=== PATIENT | female | born 1955 | race Caucasian/White ===

== ENCOUNTER → 2023-07-29 | Outpatient (CLI) | payer MEDICARE, MEDICAID, SELFPAY ==
--- NOTE | 2023-07-29 10:58 | EKG12_ITS ---
Test Reason : PREOP Blood Pressure : / mmHG Vent. Rate : 075 BPM Atrial Rate : 075 BPM P-R Int : 224 ms QRS Dur : 108 ms QT Int : 396 ms P-R-T Axes : 069 063 052 degrees QTc Int : 442 ms Sinus rhythm with 1st degree A-V block Otherwise normal ECG Confirmed by SOUTH CHAPMAN, LUISA ([id number]), associate editor RAMON CALLEJAS ([id number]) on 08/01/2023 11:48:00 AM Referred By: Iker Rizzo Confirmed By:LUISA DIA MD
[2023-07-29 12:09] LABS: Hematocrit 40.2 % (37-47); Mean Corp Hgb Conc 32.3 g/dL (32-36); Mean Corpuscular Hgb 32.1 pg (27.0-32.0); Mean Corpuscular Volume 99.3 fL (81-99); Mean Platelet Vol. 9.4 fl (6.2-12.0); Platelet Count 327 K/mm3 (150-450); RBC Distribution Width CV 13.3 % (11.6-14.6); RBC Distribution Width SD 49.3 fl (35.1-43.9); Red Blood Count 4.05 M/mm3 (4.2-5.4); White Blood Count 9.3 K/mm3 (4.4-11.0)
[2023-07-29 12:53] LABS: Anion Gap 4 (5-15); BUN 14 mg/dL (7-18); BUN/Creat Ratio 19.9 RATIO (10-20); Calcium,Total 9.2 mg/dL (8.5-10.1); Chloride 107 mmol/L (98-107); EST Glomerular Filtration Rate 88 mL/min (>60); Est Glom Filt Rate - Afr Amer 106 mL/min (>60); Glucose 134 mg/dL (74-106); Potassium 4.5 mmol/L (3.5-5.1); Sodium Level 140 mmol/L (136-145)
== END | disposition home or self-care (01) ==
LOC: PSN 10:56
PROVIDERS: PCP Family Medicine; Referring Provider Otolaryngology; Visit Provider Otolaryngology
DX: Z01.810 Encounter for preprocedural cardiovascular examination (principal); Z01.812 Encounter for preprocedural laboratory examination
CPT/HCPCS: 36415; 80048; 85027; 93005

== ENCOUNTER 2024-05-18 08:51 | Emergency (ER) | payer MEDICARE, MEDICAID, SELFPAY ==
[2024-05-18 08:52] VITALS: BP 154/89; PULSE 116; RESP 14; TEMP 36.2; O2SAT 96; BMI 38.4
--- NOTE | 2024-05-18 09:42 | RAD_ITS ---
STUDY: X-RAY CHEST REASON FOR EXAM: Female, 68 years old. Chest pain following lifting injury. TECHNIQUE: Single AP portable view of the chest. COMPARISON: Comparison is made with prior study dated December 17, 2017. FINDINGS: EKG electrodes are seen. Hyperinflation. Stable increased infrahilar markings at the right lung base suggestive of scarring and/or atelectasis. Scattered calcified granulomas. There is no demonstrated pleural abnormality. Normal size heart. Normal mediastinum and nae. Normal visualized pulmonary arteries. Normal visualized aortic arch and descending thoracic aorta. Normal visualized thoracic spine. Normal visualized ribs, clavicles, and shoulders. There is no demonstrated abnormality of the visualized soft tissue structures of the upper abdomen. RAD/Chest 1 View (Portable) IMPRESSION: Hyperinflation. Stable examination with increased markings in the right infrahilar region suggestive of a atelectasis and/or scarring. Electronically Signed: Toby Srinivasan MD at 10:18 EDT ,
--- NOTE | 2024-05-18 09:42 | EKG12_ITS ---
Test Reason : CHEST PAIN Blood Pressure : / mmHG Vent. Rate : 110 BPM Atrial Rate : 110 BPM P-R Int : 194 ms QRS Dur : 104 ms QT Int : 348 ms P-R-T Axes : 077 087 063 degrees QTc Int : 470 ms Sinus tachycardia Incomplete right bundle branch block Borderline ECG Confirmed by Misha Contreras ([id number]), film and video editor RAMON CALLEJAS ([id number]) on 05/19/2024 9:17:50 AM Referred By: Confirmed By:Misha Contreras
--- NOTE | 2024-05-18 09:44 | ED.VIS.CHEST ---
HPI History of Present Illness Chief Complaint: Chest Other Narrative Narrative: 68-year-old female presenting with chest pain. She states its mostly right-sided. 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 States it was 90 degrees outside. She states she tried to drink plenty of water while she was carrying the stones. She states she noticed that she was coughing a lot more this weekend and she is a smoker. She has not had a fever but does state the coughing might be contributing to her chest pain. No history of cardiac disease that she knows of. She has previously had a stress test which she states was normal. She states that some of her pain is reproducible with both movement and touch. Denies any direct trauma. PFSH PFS Home Medications ?Medication ?Instructions ?Recorded ?Last Taken ?Type duloxetine 60 mg capsule,delayed 60 mg PO DAILY 11/20/13 Unknown History release albuterol sulfate 90 mcg/actuation 1 - 2 puff inhalation Q6H PRN PRN 02/28/15 Unknown Rx aerosol inhaler (Ventolin HFA) Wheezing ##1 prednisone 20 mg tablet 60 mg (3 x 20 mg) PO DAILY ##15 02/28/15 Unknown Rx doxycycline monohydrate 100 mg 100 mg PO BID 12/17/17 Unknown History capsule metoprolol succinate 25 mg 25 mg PO DAILY 12/17/17 Unknown History tablet,extended release 24 hr Allergy/AdvReac Type Severity Reaction Status Date / Time Tetanus Vaccines and Toxoid Allergy Anaphylaxis Verified 05/18/24 08:58 (Tetanus Vaccines & Toxoid) Surgical History Total knee replacement status History of appendectomy Social History Smoking Status: Current every day smoker tobacco type: cigarettes ROS ROS ED Constitutional Constitutional ED: Denies chills, fever(s) or sweats Eyes Eyes: Denies blurry vision or change in vision ENT ENT ED: Denies ear pain or sore throat Cardiovascular Cardiovascular: Denies chest pain, palpitations or racing heartbeat Respiratory/Chest Respiratory/Chest: Denies cough, dyspnea or sputum Gastrointestinal Gastrointestinal: Denies abdominal pain, constipation, diarrhea, nausea or vomiting Genitourinary Genitourinary ED: Denies dysuria, hematuria or urinary frequency Musculoskeletal Musculoskeletal: Denies arthralgias, myalgias or neck pain Integumentary Denies abscess, Abrasions or rash Neurologic Neurologic: Denies headache(s), paresthesias or weakness Psychiatric Psychiatric: Denies anxiety, depression, suicidal ideation or suicidal thoughts Endocrine Endocrinology: Denies polydipsia or polyuria EXAM Physical Exam Const Vital Signs: 05/18/24 08:52 05/18/24 09:51 05/18/24 10:51 Temperature 97.2 F L Temperature Source Temporal Pulse Rate 116 H 79 Respiratory Rate 14 19 H Blood Pressure 154/89 H 115/71 Blood Pressure Mean 110 85 Pulse Ox 96 95 Oxygen Delivery Method Room Air Room Air 05/18/24 12:00 05/18/24 12:53 Temperature 95.8 F L Temperature Source Pulse Rate 83 76 Respiratory Rate 21 H 18 Blood Pressure 106/69 116/63 Blood Pressure Mean 81 80 Pulse Ox 95 97 Oxygen Delivery Method Room Air Positive well nourished General Appearance ED: NAD HEENT Reports moist mucous membranes normocephalic and atraumatic Eyes PERRL Chest Wall Chest Narrative: Tenderness to palpation over the chest wall anteriorly. No bruising. Equal symmetric breath sounds and chest wall rise. Resp normal respiratory effort and clear to auscultation bilaterally Auscultation: Negative for rales, rhonchi or wheezes Cardio Rate: tachycardic GI normal to inspection, nondistended, normoactive bowel sounds Neuro oriented x3 and CN's II-XII intact bilaterally Sensorium / Orientation: awake and alert Motor Exam: strength 5/5 throughout Psych mental status grossly normal Skin no rashes or lesions noted MDM MDM MDM Narrative Medical decision making narrative: Patient presenting with chest pain which she believes is partially due to lifting heavy stones Ogen mining and also due to coughing. Differential includes ACS, PE, costochondritis, pneumonia, dehydration, anemia, electrolyte abnormalities, pneumothorax. Patient tachycardic so we will obtain a D-dimer and she recently traveled to [place] which is not a long distance drive. CBC will be obtained to assess white blood cell count, hemoglobin, platelets. BMP to assess renal function, electrolytes, glucose. High-sensitivity troponin and EKG to assess for ischemia/dysrhythmia. Chest x-ray to rule out pneumonia. Patient does not want anything stronger if she wants to try some Toradol. EKG sinus rhythm at 110 bpm without sign ischemic change. Chest x-ray interpreted by myself shows no acute process. Radiology interpretation agrees. CBC shows white blood cell count 11.2. Hemoglobin 12.7. Platelets are normal at 270. D-dimer 154 and age-adjusted is negative. Renal function electrolytes normal. High-sensitivity troponin is 5. Since she has had this pain ongoing and open she is a delta troponin. Patient counseled on all findings. She is comfortable being discharged home. I recommended alternating Tylenol, ibuprofen, icing as needed. Impression: 1. Chest pain 2. Cough Lab Data Attestation: I reviewed the patient's lab results. Labs: Laboratory Results - last 24 hr 05/18/24 09:49 WBC 11.2 H RBC 3.97 L Hgb 12.7 Hct 38.4 MCV 96.7 MCH 32.0 MCHC 33.1 RDW Std Deviation 47.3 H RDW Coeff of Darleen 13.2 Plt Count 270 MPV 9.4 Immature Gran % (Auto) 0.500 Neut % (Auto) 69.9 Lymph % (Auto) 20.3 Harmon % (Auto) 7.7 Eos % (Auto) 1.2 Baso % (Auto) 0.4 Absolute Neuts (auto) 7.8 H Absolute Lymphs (auto) 2.28 Nucleated RBC % 0 D-Dimer Quant (PE/DVT) 0.54 H* Sodium 138 Potassium 3.9 Chloride 108 H Carbon Dioxide 28.0 Anion Gap 2 L BUN 18 Creatinine 0.68 Estim Creat Clear Calc 78.01 Est GFR (MDRD) Af Amer 111 Est GFR (MDRD) Non-Af 91 BUN/Creatinine Ratio 26.5 H Glucose 134 H Calcium 9.2 Troponin I High Sens 5 Radiography Diagnostic Testing: Clinical Impression(s) from Imaging Studies Chest X-Ray 05/18/24 09:42 IMPRESSION: Hyperinflation. Stable examination with increased markings in the right infrahilar region suggestive of a atelectasis and/or scarring. Electronically Signed: Toby Srinivasan MD at 10:18 EDT , Discharge Plan Triage Chief Complaint: Chest Other ED Provider: German Lacey Dx/Rx/DC Orders Instructions: ED Chest Pain, Noncardiac, ED Chest Wall Pain, Costochondritis Prescriptions: No Action duloxetine 60 MG capsule 60 mg PO DAILY albuterol sulfate [Ventolin HFA] 1 INHALER inhaler 1 - 2 puff inhalation Q6H PRN PRN (Reason: Wheezing) Qty: 1 0RF prednisone 20 MG tablet 60 mg PO DAILY Qty: 15 0RF metoprolol succinate 25 MG tablet extended release 24 hr 25 mg PO DAILY doxycycline monohydrate 100 MG capsule 100 mg PO BID Primary Care Provider: Jerome Chatterjee Referrals: Jerome Chatterjee MD [Primary Care Provider] - Print Language: Yemeni Disposition Disposition: Home, Self Care Discharge Date/Time: 05/18/24 12:54
[2024-05-18] MEDS: 0.9% Normal Saline (1000mL) 1,000 ML 999 ML IV (09:52)
[2024-05-18] MEDS: Ketorolac 15 MG/ML Vial IV (09:53)
[2024-05-18 09:54] LABS: Absolute Lymphocyte Count 2.28 X10^3/uL (0.83-4.51); Absolute Neutrophil Count 7.8 X10^3/uL (2.0-7.7); Basophil# 0.04 X10^3/uL; Basophil% 0.4 % (0-1); Eosinophil# 0.14 X10^3/uL; Eosinophils% 1.2 % (0-5); Hematocrit 38.4 % (37-47); Hemoglobin 12.7 g/dL (12.0-15.0); Lymphocyte # 2.28 X10^3/ul (0.83-4.51); Lymphocyte % 20.3 % (19-41); Mean Corp Hgb Conc 33.1 g/dL (32-36); Mean Corpuscular Volume 96.7 fL (81-99); Mean Platelet Vol. 9.4 fl (6.2-12.0); Monocyte# 0.86 X10^3/uL; Monocyte% 7.7 % (0-10); NRBC Flagged by Analyzer 0 % (0-5); Neutrophil # 7.83 X10^3/uL (2.7-7.7); Neutrophil % 69.9 % (47-70); Platelet Count 270 K/mm3 (150-450); RBC Distribution Width CV 13.2 % (11.6-14.6); RBC Distribution Width SD 47.3 fl (35.1-43.9); Red Blood Count 3.97 M/mm3 (4.2-5.4); White Blood Count 11.2 K/mm3 (4.4-11.0)
[2024-05-18 10:14] LABS: Anion Gap 2 (5-15); BUN 18 mg/dL (7-18); BUN/Creat Ratio 26.5 RATIO (10-20); Calcium,Total 9.2 mg/dL (8.5-10.1); Chloride 108 mmol/L (98-107); Creatinine, Serum 0.68 mg/dL (0.55-1.02); D-Dimer Quantitative (DVT/PE) 0.54 FEU/ug/m (0.27-0.49); EST Glomerular Filtration Rate 91 mL/min (>60); Est Glom Filt Rate - Afr Amer 111 mL/min (>60); Estimated Creatinine Clearance 78.01 ml/min; Glucose 134 mg/dL (74-106); Potassium 3.9 mmol/L (3.5-5.1); Sodium Level 138 mmol/L (136-145); Troponin-I HS 5 pg/mL (3.0-54.0)
--- NOTE | 2024-05-18 10:15 | ED.RN ---
Critical lab result d-dimer of 0.54. Dr. Lacey notified
[2024-05-18 10:51] VITALS: BP 115/71; PULSE 79; RESP 19; O2SAT 95
[2024-05-18 12:00] VITALS: BP 106/69; PULSE 83; RESP 21; O2SAT 95
[2024-05-18 12:53] VITALS: BP 116/63; PULSE 76; RESP 18; TEMP 35.4; O2SAT 97
== END 2024-05-18 12:54 | disposition home or self-care (01) ==
PROVIDERS: Emergency Provider Student in an Organized Health Care Education/Training Program; PCP Family Medicine; Visit Provider Student in an Organized Health Care Education/Training Program
DX: R07.89 Other chest pain (principal); F17.210 Nicotine dependence, cigarettes, uncomplicated; R05.9 Cough, unspecified
CPT/HCPCS: 71045; 80048; 84484; 85025; 85379; 93005; 96361; 96374; 99284; J7030; A4216

== ENCOUNTER 2024-06-05 19:56 | Emergency (ER) | payer MEDICARE, MEDICAID, SELFPAY ==
[2024-06-05 19:57] VITALS: BP 143/103; PULSE 99; RESP 16; TEMP 36.5; O2SAT 95; BMI 39.6
[2024-06-05 20:01] VITALS: O2SAT 94
--- NOTE | 2024-06-05 20:10 | EDS_ITS ---
HPI History of Present Illness Chief Complaint: Shortness of Breath Informant: patient Onset/Context/Timing Onset: Today Narrative Narrative: Patient presents secondary shortness of breath with throat tightening. She states she woke from sleep and felt that her throat was very dry and sticking together. She was not able to get a good breath in. She states she feels that there is a lot of thick mucus and drainage that she was not able to bring up. She has not recently been ill. She does not have any neck or chest pain. She states she has had this happen before, but this episode seem to be worse. [facility] Medical History (Updated 06/05/24 @ 21:[address] Karely Mercado MD) Depression Diabetes mellitus Hypertension High cholesterol COPD (chronic obstructive pulmonary disease) Home Medications ?Medication ?Instructions ?Recorded ?Last Taken ?Type duloxetine 60 mg capsule,delayed 60 mg PO DAILY 11/20/13 Unknown History release albuterol sulfate 90 mcg/actuation 1 - 2 puff inhalation Q6H PRN PRN 02/28/15 Unknown Rx aerosol inhaler (Ventolin HFA) Wheezing ##1 metoprolol succinate 25 mg 25 mg PO DAILY 12/17/17 Unknown History tablet,extended release 24 hr atorvastatin 10 mg tablet 10 mg PO DAILY 06/05/24 Unknown History guaifenesin 1,200 mg tablet, 1,200 mg PO BID PRN congestion #20 06/05/24 Unknown Rx extended release 12 hr (Mucinex) tabs metformin 500 mg tablet,extended 1,000 mg PO DAILY 06/05/24 Unknown History release 24 hr Allergy/AdvReac Type Severity Reaction Status Date / Time Tetanus Vaccines and Toxoid Allergy Anaphylaxis Verified 05/18/24 08:58 (Tetanus Vaccines & Toxoid) Surgical History Total knee replacement status History of appendectomy Social History Smoking Status: Current every day smoker tobacco type: cigarettes ROS ROS ED Constitutional Constitutional ED: Denies chills or fever(s) Eyes Eyes: Denies discharge from eye(s) ENT ENT ED: Reports other Details: Throat tightness but denies throat pain. ; Denies discharge from eye(s), rhinorrhea or sore throat Cardiovascular Cardiovascular: Denies chest pain Respiratory/Chest Respiratory/Chest: Reports dyspnea; Denies cough Gastrointestinal Gastrointestinal: Denies abdominal pain, nausea or vomiting Musculoskeletal Musculoskeletal: Denies back pain or extremity pain Integumentary Denies Abrasions or rash Neurologic Neurologic: Denies headache(s) or weakness Psychiatric Psychiatric: Denies anxiety or depression Allergic/Immunologic Allergic/Immunologic ED: Denies lip swelling or urticaria EXAM Physical Exam Const Vital Signs: 06/05/24 19:57 06/05/24 20:01 06/05/24 20:25 Temperature 97.7 F L Temperature Source Temporal Pulse Rate 99 94 Respiratory Rate 16 16 Respiratory Effort Normal Non-Labored Respiratory Depth Normal Respiratory Pattern Normal Normal Blood Pressure 143/103 H Blood Pressure Mean 116 Pulse Ox 95 Oxygen Delivery Method Room Air Room Air Positive well nourished and well developed General Appearance ED: well developed HEENT Reports moist mucous membranes Eyes EOMs intact bilaterally Chest Wall inspection of chest normal and palpation of chest normal Resp normal respiratory effort and clear to auscultation bilaterally Cardio regular rate and regular rhythm GI non-tender Palpation: soft Extremity normal to inspection Neuro oriented x3 and no sensory deficits noted Motor Exam: strength 5/5 throughout Psych mental status grossly normal Skin no rashes or lesions noted MDM MDM MDM Narrative Medical decision making narrative: Patient tolerating secretions well and speaks with a strong voice at this time. I will give her a DuoNeb treatment as well as a dose of Mucinex. X-rays of the soft tissue neck and chest will be obtained to evaluate for any airway narrowing or infiltrate. Radiography Diagnostic Testing: Clinical Impression(s) from Imaging Studies Chest X-Ray 06/05/24 20:15 IMPRESSION: There are no acute findings. Electronically Signed: Andrew Correia MD at 21:22 EDT , Soft Tissue Neck X-Ray 06/05/24 20:15 IMPRESSION: No acute findings in the neck. Electronically Signed: Andrew Correia MD at 21:31 EDT , Treatment and Re-Evaluation :: Soft tissue neck x-ray and chest x-ray per my interpretation: No obvious acute abnormalities. No airway narrowing. Radiology interpretation reviewed and agrees. On repeat evaluation patient does feel improved. Respiratory therapy did report increased air movement after her aerosol treatment. Patient will be on a prescription for Mucinex and she was advised that if her medication card does not cover it she can pick it up [id number]. We discussed increasing p.o. fluids to help thin down the mucus. I do not see any signs of acute infection at this time. Discharge Plan Triage Chief Complaint: Shortness of Breath ED Provider: Karely Mercado Dx/Rx/DC Orders Clinical Impression: Dysphagia Prescriptions: New guaifenesin [Mucinex] 1,200 mg tablet extended release 12hr 1,200 mg PO BID PRN (Reason: congestion) Qty: 20 0RF No Action duloxetine 60 MG capsule 60 mg PO DAILY albuterol sulfate [Ventolin HFA] 1 INHALER inhaler 1 - 2 puff inhalation Q6H PRN PRN (Reason: Wheezing) Qty: 1 0RF metoprolol succinate 25 MG tablet extended release 24 hr 25 mg PO DAILY metformin 500 mg tablet extended release 24 hr 1,000 mg PO DAILY atorvastatin 10 mg tablet 10 mg PO DAILY Primary Care Provider: Jerome Chatterjee Referrals: Jerome Chatterjee MD [Primary Care Provider] - 3-5 Days if not improving Activity Restrictions/Additional Instructions: You have been given prescription for Mucinex which will help thin the mucus and sputum so you can get it out. If this is not covered by your prescription card, it is available [id number]. Please increase your p.o. fluids as well. Print Language: Ug[place]an Disposition Disposition: Home, Self Care
--- NOTE | 2024-06-05 20:15 | RAD_ITS ---
EXAM: XR SOFT TISSUE NECK CLINICAL INDICATION: choking TECHNIQUE: Frontal and lateral views of the soft tissues of the neck. COMPARISON: No relevant prior studies available. FINDINGS: AIRWAY: Unremarkable. Grossly patent. BONES/JOINTS: Degenerative findings in the cervical spine. SOFT TISSUES: Unremarkable. No radiopaque foreign body. No pathologic thickening or enlargement of the epiglottis. VASCULATURE: Left carotid artery calcification. RAD/Neck for Soft Tissue IMPRESSION: No acute findings in the neck. Electronically Signed: Andrew Correia MD at 21:31 EDT ,
--- NOTE | 2024-06-05 20:15 | RAD_ITS ---
STUDY: XR Chest 2 Views 06/05/2024 8:15 PM REASON FOR EXAM: Female, 68 years old. sob COMPARISON: 05/18/2024 TECHNIQUE: XR Chest 2 Views FINDINGS: There is no demonstrated pleural abnormality. Normal heart size. Normal mediastinum. Normal nae. Prominent appearing increased interstitial lung markings. Normal visualized pulmonary arteries. There is atherosclerotic calcification of the aortic arch with tortuosity. There are diffuse degenerative changes of the visualized thoracic spine. There is degenerative osteoarthritis of the bilateral shoulders. There are no acute findings of the upper abdomen. RAD/Chest PA and Lateral IMPRESSION: There are no acute findings. Electronically Signed: Andrew Correia MD at 21:22 EDT ,
[2024-06-05 20:25] VITALS: PULSE 94; RESP 16
[2024-06-05] MEDS: Ipratropium/Albuterol Sulfate 3 ML AMPUL.NEB INHALATION (20:25)
[2024-06-05] MEDS: guaiFENesin 1,200 MG Tablet 1200 MG PO (20:32)
== END 2024-06-05 22:22 | disposition home or self-care (01) ==
PROVIDERS: Emergency Provider Emergency Medicine; PCP Family Medicine; Visit Provider Emergency Medicine
DX: R13.10 Dysphagia, unspecified (principal); J44.9 Chronic obstructive pulmonary disease, unspecified; E11.9 Type 2 diabetes mellitus without complications; I10 Essential (primary) hypertension; E78.00 Pure hypercholesterolemia, unspecified; F17.210 Nicotine dependence, cigarettes, uncomplicated; Z79.899 Other long term (current) drug therapy; Z79.84 Long term (current) use of oral hypoglycemic drugs
CPT/HCPCS: 70360; 71046; 94640; 99282